=== PATIENT | male | born 1940 | race Caucasian/White ===

== ENCOUNTER 2020-07-12 08:13 | Outpatient (REF) | payer MEDICARE, OTHER, SELFPAY ==
[2020-07-12 11:03] LABS: MANUAL DIFF FLAG NO
[2020-07-12 11:06] LABS: Basophils Percent Auto 0.5 % (0-2); Eosinophils Absolute Auto 0.1 X10*3/uL (0.0-0.4); Eosinophils Percent Auto 0.9 % (0-4); Hematocrit 41.3 % (42-52); Hemoglobin 14.3 g/dl (14.0-18.0); Imm Gran Abs Auto 0.03 X10*3/uL (0.00-0.03); Imm Gran Pct Auto 0.4 % (0.0-0.4); Lymphocytes Absolute Auto 1.6 X10*3/uL (1.2-4.9); Lymphocytes Percent Auto 19.4 % (20-40); Mean Corpuscular HGB Conc 34.6 g/dl (31.0-36.0); Mean Corpuscular Hemoglobin 30.4 pg (27.0-33.0); Mean Corpuscular Volume 87.9 fL (80-98); Mean Platelet Volume 10.8 fL (9.4-12.4); Monocytes Absolute Auto 0.6 X10*3/uL (0.1-1.2); Monocytes Percent Auto 6.8 % (2-11); Neutrophils Absolute Auto 5.8 X10*3/uL (2.0-8.3); Platelet Count 223 X10*3/uL (160-400); Red Cell Distribution Width 12.8 % (11.0-16.0); White Blood Count 8.1 X10*3/uL (4.8-10.8)
[2020-07-12 11:28] LABS: Estimated Average Glucose 131 mg/dL; Hemoglobin A1c % 6.2 %
[2020-07-12 11:50] LABS: Alanine Aminotransferase 14 U/L (0-40); Albumin Level 4.5 g/dL (3.5-5.0); Alkaline Phosphatase 67 U/L (39-117); Anion Gap 15 (12-20); Aspartate Amino Transferase 15 U/L (5-37); Bilirubin Total 0.9 mg/dL (0.0-1.0); Blood Urea Nitrogen 16 mg/dL (9-16); Calcium 8.7 mg/dL (8.4-10.2); Carbon Dioxide 24 mmol/L (22-29); Chloride 106 mmol/L (96-108); Cholesterol 138 mg/dL; Estimated Glomerular Filt Rate > 60; Glucose Fasting 92 mg/dL (60-99); HDL Cholesterol 35 mg/dL; LDL Cholesterol Calculated 87 mg/dl; Potassium 4.6 mmol/L (3.3-5.1); Sodium 140 mmol/L (135-145); Total Protein 6.5 g/dL (6.5-8.0); Triglycerides 84 mg/dL
[2020-07-12 12:13] LABS: Creatinine Urine 114.87 mg/dL; Microalbum/Creatinine Ratio Ur 55.7 ug/mg cr
== END 2020-07-12 08:14 | disposition home or self-care (01) ==
LOC: HO.HMGCLDS 08:13
PROVIDERS: PCP Internal Medicine; Visit Provider Internal Medicine
DX: E11.9 Type 2 diabetes mellitus without complications (principal)
CPT/HCPCS: 36415; 80053; 80061; 82043; 83036; 85025

== ENCOUNTER 2020-07-26 08:14 | Outpatient (REF) | payer MEDICARE, OTHER, SELFPAY ==
--- NOTE | 2020-07-26 15:44 | MHC.AU.P13 ---
Adult Audiological Evaluation Date of Visit: 07/26/20 Reason for Appointment: Audiological evaluation due to concern for decreased hearing. Mr. Whitehead reports that he does not hear well in most situations and often doesn't understand what people are saying. He reports occasional ringing in his ears, but hasn't noticed it for a while. Does patient feel they have a hearing loss?: Yes If Yes, Which Ear?: Both Ears Has hearing been tested previously?: No Hearing Handicap Inventory: HHIE SCORE: 8 Based on HHIE score, patient has: No perceived hearing handicap Ear History: History of Ear Wax Buildup: Both Ears Bothersome Tinnitus/Ringing/Noises in Ears: Occasional ringing, likely transient ear noise History: History: Yes Branch: [employer] Years in : 4-8 Years Medical History: Medical History:Measles, Mumps Medical History (Other): Gall stones ~1986, back surgery 1999 Medication List: Aspirin 81mg, metformin 1000 mg, atorvastatin, lisinopril 20 mg, one a day multi vitamin, vitamin D, vitamin B12, vitamin C Otoscopy: Right Ear: Occluded w/wax. Partially removed w/lighted curette. Unable to complete Left Ear: Occluded w/wax. Partially removed w/lighted curette. Unable to complete Tympanometry: Tympanometry performed due to: To determine if cerumen blockage is fully occluding canal(s) Right Ear: Reduced Middle Ear Compliance (Type As) Left Ear: Could Not Obtain Seal Hearing Evaluation: Transducer(s) Used: Circumaural Headphones, Bone Conduction Method: Conventional Audiometry Stimuli Used: Pure Tones Right Ear: Description of Hearing: Normal hearing at 250 Hz, steeply sloping to a mild to severe sensorineural hearing loss from 500-8000 Hz. Left Ear: Description of Hearing: Normal hearing at 250 Hz, steeply sloping to a mild to moderately severe sensorineural hearing loss from 500-2000 Hz, severe mixed hearing loss from 5339-2174 Hz, and a profound hearing loss from 0032-6524 Hz. Speech Recognition Threshold (SRT): Method Used: Monitored Live Voice Stimuli Used: Spondee Words Right Ear: 30 dBHL Left Ear: 40 dBHL Word Discrimination: Method: Recorded Lists Word Lists Used: NU-6 Right Ear: 84% at 70 dBHL Left Ear: 48% at 80 dBHL Recommendations: Audiological re-evaluation in one year. Trial with amplification is recommended. Follow-up with physician for cerumen removal. Briefly discussed hearing aids today. Recommend that Mr. Whitehead contact his health insurance company to determine whether he has a hearing aid benefit. He may also consider contacting the [facility] in [place] to determine is eligible for hearing aids through them given that he is a . He was welcomed to return for a consultation should he decide to pursue hearing aids through our clinic. Recommend that Mr. Whitehead have the rest of the wax removed from his ears either with [id number] ear wax removal drops or by an ENT physician. Diagnosis: Primary Diagnosis: H90.3 Bilateral Sensorineural Hearing Loss Secondary Diagnosis: H61.23 Impacted Cerumen, Bilateral Services Performed: Services Performed: Comprehensive Audiological Evaluation (CPT 09316) Tympanometry (CPT 76656) Signature: Provider: Eveline Pina, CCC-A
== END 2020-07-26 08:15 | disposition home or self-care (01) ==
LOC: HO.SH 08:14
PROVIDERS: Visit Provider Internal Medicine
DX: H90.3 Sensorineural hearing loss, bilateral (principal); H61.23 Impacted cerumen, bilateral
CPT/HCPCS: 92557; 92567

== ENCOUNTER 2021-02-08 06:48 | Outpatient (REF) | payer MEDICARE, OTHER, SELFPAY ==
[2021-02-08 11:24] LABS: MANUAL DIFF FLAG NO
[2021-02-08 11:29] LABS: Basophils Percent Auto 0.3 % (0-2); Eosinophils Absolute Auto 0.2 X10*3/uL (0.0-0.4); Eosinophils Percent Auto 2.2 % (0-4); Hematocrit 40.3 % (42-52); Hemoglobin 13.8 g/dl (14.0-18.0); Imm Gran Abs Auto 0.03 X10*3/uL (0.00-0.03); Imm Gran Pct Auto 0.3 % (0.0-0.4); Lymphocytes Absolute Auto 2.1 X10*3/uL (1.2-4.9); Lymphocytes Percent Auto 22.9 % (20-40); Mean Corpuscular HGB Conc 34.2 g/dl (31.0-36.0); Mean Corpuscular Hemoglobin 30.2 pg (27.0-33.0); Mean Corpuscular Volume 88.2 fL (80-98); Mean Platelet Volume 10.5 fL (9.4-12.4); Monocytes Absolute Auto 0.7 X10*3/uL (0.1-1.2); Monocytes Percent Auto 7.7 % (2-11); Neutrophils Absolute Auto 6.2 X10*3/uL (2.0-8.3); Neutrophils Percent Auto 66.6 % (45-73); Platelet Count 221 X10*3/uL (160-400); Red Blood Count 4.57 X10*6/uL (4.60-5.80); Red Cell Distribution Width 12.6 % (11.0-16.0); White Blood Count 9.3 X10*3/uL (4.8-10.8)
[2021-02-08 11:48] LABS: Appearance Urine CLEAR; Color Urine YELLOW; Glucose Urine UA NEG (NEG); Leukocyte Esterase Urine NEG (NEG); Nitrite Urine NEG (NEG); PH 5.5 (5.0-8.0); Specific Gravity - Urine 1.025 (1.005-1.025); Urine Blood NEG (NEG); Urine Ketones NEG (NEG); Urine Protein NEG (NEG-TRACE)
[2021-02-08 11:56] LABS: Alanine Aminotransferase 14 U/L (0-40); Albumin Level 4.4 g/dL (3.5-5.0); Alkaline Phosphatase 74 U/L (39-117); Anion Gap 15 (12-20); Aspartate Amino Transferase 16 U/L (5-37); Bilirubin Total 0.9 mg/dL (0.0-1.0); Blood Urea Nitrogen 16 mg/dL (9-16); Calcium 9.1 mg/dL (8.4-10.2); Carbon Dioxide 24 mmol/L (22-29); Chloride 105 mmol/L (96-108); Cholesterol 124 mg/dL; Estimated Glomerular Filt Rate > 60; Glucose Fasting 71 mg/dL (60-99); HDL Cholesterol 35 mg/dL; LDL Cholesterol Calculated 66 mg/dl; Potassium 4.8 mmol/L (3.3-5.1); Sodium 139 mmol/L (135-145); Total Protein 6.4 g/dL (6.5-8.0); Triglycerides 118 mg/dL
[2021-02-08 12:05] LABS: Vitamin D 25-OH Total 28.6 ng/mL (>30)
[2021-02-08 12:16] LABS: RBC Urine 0 /HPF (0); Squamous Epithelial Cell Urine 2+ /LPF; WBC Urine 0 /HPF (0-4)
[2021-02-08 12:25] LABS: Vitamin B12 463 pg/mL (200-900)
[2021-02-08 13:00] LABS: Creatinine Urine 139.41 mg/dL; Microalbum/Creatinine Ratio Ur 7.1 ug/mg cr
[2021-02-09 07:23] LABS: Estimated Average Glucose 134 mg/dL; Hemoglobin A1c % 6.3 %
== END 2021-02-08 06:49 | disposition home or self-care (01) ==
LOC: HO.HMGCLDS 06:48
PROVIDERS: PCP Internal Medicine; Visit Provider Internal Medicine
DX: E11.49 Type 2 diabetes mellitus with other diabetic neurological complication (principal); E11.29 Type 2 diabetes mellitus with other diabetic kidney complication; Z79.4 Long term (current) use of insulin
CPT/HCPCS: 36415; 80053; 80061; 81001; 82043; 82306; 82607; 82746; 83036; 85025

== ENCOUNTER 2021-08-27 07:02 | Outpatient (REF) | payer MEDICARE, OTHER, SELFPAY ==
[2021-08-27 11:15] LABS: MANUAL DIFF FLAG NO
[2021-08-27 11:40] LABS: Basophils Absolute Auto 0.1 X10*3/uL (0.0-0.2); Basophils Percent Auto 0.5 % (0-2); Eosinophils Absolute Auto 0.3 X10*3/uL (0.0-0.4); Eosinophils Percent Auto 3.1 % (0-4); Hemoglobin 13.8 g/dl (14.0-18.0); Imm Gran Abs Auto 0.04 X10*3/uL (0.00-0.03); Imm Gran Pct Auto 0.4 % (0.0-0.4); Lymphocytes Absolute Auto 2.3 X10*3/uL (1.2-4.9); Lymphocytes Percent Auto 24.8 % (20-40); Mean Corpuscular HGB Conc 33.7 g/dl (31.0-36.0); Mean Corpuscular Hemoglobin 30.3 pg (27.0-33.0); Mean Corpuscular Volume 89.9 fL (80.0-98.0); Mean Platelet Volume 10.4 fL (9.4-12.4); Monocytes Absolute Auto 0.7 X10*3/uL (0.1-1.2); Monocytes Percent Auto 7.8 % (2-11); Neutrophils Absolute Auto 5.9 x10*3/uL (2.0-8.3); Neutrophils Percent Auto 63.4 % (45-73); Platelet Count 219 X10*3/uL (160-400); Red Blood Count 4.56 X10*6/uL (4.60-5.80); White Blood Count 9.3 X10*3/uL (4.8-10.8)
[2021-08-27 11:43] LABS: Estimated Average Glucose 120 mg/dL; Hemoglobin A1c % 5.8 %
[2021-08-27 12:06] LABS: Alanine Aminotransferase 10 U/L (0-40); Albumin Level 4.3 g/dL (3.5-5.0); Alkaline Phosphatase 79 U/L (39-117); Anion Gap 12 (12-20); Aspartate Amino Transferase 13 U/L (5-37); Bilirubin Total 0.7 mg/dL (0.0-1.0); Blood Urea Nitrogen 18 mg/dL (9-16); Calcium 9.4 mg/dL (8.4-10.2); Carbon Dioxide 26 mmol/L (22-29); Chloride 108 mmol/L (96-108); Cholesterol 120 mg/dL; Estimated Glomerular Filt Rate > 60; Glucose Fasting 64 mg/dL (60-99); HDL Cholesterol 34 mg/dL; LDL Cholesterol Calculated 70 mg/dl; Potassium 4.6 mmol/L (3.3-5.1); Sodium 141 mmol/L (135-145); Total Protein 6.6 g/dL (6.5-8.0); Triglycerides 83 mg/dL
[2021-08-27 12:06] LABS: Creatinine Urine 129.22 mg/dL; Microalbum/Creatinine Ratio Ur 38.6 ug/mg cr
[2021-08-27 12:07] LABS: Thyroid Stimulating Hormone 1.16 uIU/mL (0.32-4.0)
== END 2021-08-27 07:03 | disposition home or self-care (01) ==
LOC: HO.HMGCLDS 07:02
PROVIDERS: Visit Provider Internal Medicine
DX: E11.9 Type 2 diabetes mellitus without complications (principal); E66.09 Other obesity due to excess calories
CPT/HCPCS: 36415; 80053; 80061; 82043; 83036; 84443; 85025

== ENCOUNTER 2022-08-15 06:44 | Outpatient (REF) | payer MEDICARE, OTHER, SELFPAY ==
[2022-08-15 11:13] LABS: MANUAL DIFF FLAG NO
[2022-08-15 11:22] LABS: Basophils Percent Auto 0.5 % (0-2); Eosinophils Absolute Auto 0.2 X10*3/uL (0.0-0.4); Eosinophils Percent Auto 2.3 % (0-4); Hematocrit 37.8 % (42.0-52.0); Hemoglobin 12.7 g/dl (14.0-18.0); Imm Gran Abs Auto 0.03 X10*3/uL (0.00-0.03); Imm Gran Pct Auto 0.4 % (0.0-0.4); Lymphocytes Absolute Auto 2.2 X10*3/uL (1.2-4.9); Lymphocytes Percent Auto 26.6 % (20-40); Mean Corpuscular HGB Conc 33.6 g/dl (31.0-36.0); Mean Corpuscular Hemoglobin 30.1 pg (27.0-33.0); Mean Corpuscular Volume 89.6 fL (80.0-98.0); Mean Platelet Volume 10.9 fL (9.4-12.4); Monocytes Absolute Auto 0.6 X10*3/uL (0.1-1.2); Monocytes Percent Auto 7.6 % (2-11); Neutrophils Absolute Auto 5.2 x10*3/uL (2.0-8.3); Neutrophils Percent Auto 62.6 % (45-73); Platelet Count 204 X10*3/uL (160-400); Red Blood Count 4.22 X10*6/uL (4.60-5.80); Red Cell Distribution Width 12.9 % (11.0-16.0); White Blood Count 8.3 X10*3/uL (4.8-10.8)
[2022-08-15 11:35] LABS: Estimated Average Glucose 123 mg/dL; Hemoglobin A1c % 5.9 %
[2022-08-15 11:46] LABS: Alanine Aminotransferase 14 U/L (0-40); Albumin Level 4.1 g/dL (3.5-5.0); Alkaline Phosphatase 71 U/L (39-117); Anion Gap 11 (12-20); Aspartate Amino Transferase 15 U/L (5-37); Bilirubin Total 0.8 mg/dL (0.0-1.0); Blood Urea Nitrogen 17 mg/dL (9-16); Calcium 8.6 mg/dL (8.4-10.2); Carbon Dioxide 25 mmol/L (22-29); Chloride 108 mmol/L (96-108); Cholesterol 112 mg/dL; Estimated Glomerular Filt Rate > 60; Glucose Fasting 74 mg/dL (60-99); HDL Cholesterol 31 mg/dL; LDL Cholesterol Calculated 60 mg/dl; Potassium 4.4 mmol/L (3.3-5.1); Sodium 140 mmol/L (135-145); Total Protein 5.9 g/dL (6.5-8.0); Triglycerides 108 mg/dL
[2022-08-15 12:14] LABS: Creatinine Urine 144.65 mg/dL; Microalbum/Creatinine Ratio Ur 8.9 ug/mg cr
== END 2022-08-15 06:45 | disposition home or self-care (01) ==
LOC: HO.HMGCLDS 06:44
PROVIDERS: PCP Internal Medicine; Visit Provider Internal Medicine
DX: E11.9 Type 2 diabetes mellitus without complications (principal); I10 Essential (primary) hypertension; M54.31 Sciatica, right side
CPT/HCPCS: 36415; 80053; 80061; 82043; 83036; 85025

== ENCOUNTER 2023-06-15 09:55 | Outpatient (AMB) | payer MEDICARE, OTHER, SELFPAY ==
--- NOTE | 2023-06-15 10:57 | MHC.OFFWIV ---
Intake Vital Signs 06/15/23 11:01 Height 5 ft 9 in Weight 180 lb BMI 26.6 BP 150/80 H Blood Pressure Location Lt brachial Position Sitting Pulse 76 Pulse Source Pulse Oximeter Temp 98.0 F Temp Source Temporal Artery Scan Pulse Oximetry (%) 98 Oxygen Delivery Method Room Air Intake Visit Reasons: [employer] growth on his back, itchy Intake Note: pt is here for c.o growth on his back, pt states its itchy Patient Tobacco Use Status: Never used Tobacco Allergies No Known Allergies Allergy (Verified 06/15/23 10:58) Do you need a note to return to daycare/school/sports/work: No HPI [employer] growth on his back, itchy HPI Details 82-year-old male presents to the office for a sick visit. Patient has a lesion on the back that he would like examined. It started bleeding over the weekend. [facility] Social History (System 08/09/21 @ 13:58 by Susan Daley) Patient Tobacco Use Status: Never used Tobacco Physical Exam Vital Signs: Last Vital Signs Temp 98.0 F 06/15/23 11:01 Pulse 76 06/15/23 11:01 BP 150/80 H 06/15/23 11:01 Pulse Ox 98 06/15/23 11:01 Oxygen Delivery Method Room Air 06/15/23 11:01 BMI result Body Mass Index 26.6 Skin Other: Three centimetres cystic lesion filled with blood. No tenderness. The skin over the cyst is thickened. Assessment & Plan Assessment & Plan (1) Sebaceous cyst: Code(s): L72.3 - Sebaceous cyst Plan: Appointment with surgeon given for excision of the cyst. Coding Level of Care Code Est Pt Level 3 (95864) Diagnoses Sebaceous cyst L72.3
[2023-06-15 11:01] VITALS: BP 150/80; PULSE 76; TEMP 36.7; O2SAT 98; BMI 26.6
== END 2023-06-15 11:34 | disposition home or self-care (01) ==
PROVIDERS: PCP Internal Medicine; Visit Provider Internal Medicine
DX: L72.3 Sebaceous cyst (principal)
CPT/HCPCS: 99213

== ENCOUNTER 2023-06-30 10:07 | Outpatient (AMB) | payer MEDICARE, OTHER, SELFPAY ==
--- NOTE | 2023-06-30 10:09 | MHC.OFFVIS ---
Intake Vital Signs 06/30/23 10:15 Height 5 ft 9 in Weight 193 lb BMI 28.5 BP 156/67 H Blood Pressure Location Rt brachial Position Sitting Pulse 49 L Intake Visit Reasons: Cyst~ back Intake Note: Patient was referred by Dr. Degroot for cyst on back. Present for 8m. Patient c/o: bleeding, painful to the touch. Irritated with constant friction from shirts. Multiple Coil Winder Required: No Accompanied by: Spouse Allergies No Known Allergies Allergy (Verified 06/30/23 10:15) HPI HPI Comments History of Present Illness Details Patient presents for evaluation of a left mid back growth/mass. He has had this indeterminate time. His increasing in size, becoming more symptomatic. Patient presents with his . Chart was reviewed patient evaluated. Patient has never had such lesions before. [facility] Social History Patient Tobacco Use Status: Never used Tobacco Physical Exam Vital Signs: Last Vital Signs Pulse 49 L 06/30/23 10:15 BP 156/67 H 06/30/23 10:15 BMI result Body Mass Index 28.5 HEENT Other: No cervical, periclavicular, or axillary adenopathy. Chest Other: Chest breath sounds bilaterally, HS 1 in 2 GI Other: Abdomen soft, corpulent, benign Back/Spine/Pelvis Other: Patient has approximately 4 x 3 cm exophytic left mid back mass/growth. Assessment & Plan Assessment & Plan (1) Skin malignant neoplasm: Code(s): C44.90 - Unspecified malignant neoplasm of skin, unspecified Plan Because of the size and depth of this process, the current recommendation is to undergo wide local excision of this and Ambulatory Surgical setting. Risks, benefits, and alternatives reviewed the patient and his and included but not limited to bleeding, infection, recurrence, numbness, pain, scarring, seroma formation and the patient wishes to proceed. All questions answered. Arrangements were made for this. Coding Level of Care Code New Pt Level 5 (41305) Diagnoses Skin malignant neoplasm C44.90
[2023-06-30 10:15] VITALS: BP 156/67; PULSE 49; BMI 28.5
== END 2023-06-30 10:34 | disposition home or self-care (01) ==
PROVIDERS: PCP Internal Medicine; Referring Provider Internal Medicine; Visit Provider Surgery
DX: L72.3 Sebaceous cyst (principal)
CPT/HCPCS: 99204

== ENCOUNTER → 2023-06-30 10:07 | Outpatient (BNVA) | payer MEDICARE, OTHER, SELFPAY | PROVIDERS: PCP Internal Medicine; Referring Provider Internal Medicine; Visit Provider Surgery | DX: C44.90 Unspecified malignant neoplasm of skin, unspecified (principal) | CPT/HCPCS: 99202 ==

== ENCOUNTER 2023-07-10 11:43 | Day surgery (SDC) | payer MEDICARE, OTHER, SELFPAY ==
--- NOTE | 2023-07-09 10:24 | MHC.SHP ---
Pre-Procedural Eval Section A - 24 Hr Update-Section A only Date of Service: 07/09/23 The patient is an INPATIENT: No Changes since office visit: No Cold of Flu in the past 2 weeks, No New Medical Problems, No Changes in Medication and No Patient answered all questions The patient has been examined within 24 hours of the surgical procedure. The History & Physical has been completed within 30 days and I have reviewed it.: Yes Section B - Complete if H&P > 30 days Chief Complaint: Unspecified malignant neoplasm of skin, unspecifie Allergies: Allergies Allergy/AdvReac Type Severity Reaction Status Date / Time No Known Allergies Allergy Verified 06/30/23 10:15 Plan I have reviewed the history and physical and performed a pertinent physical examination on my patient. No changes have occurred unless specified. Time Spent With Patient Time: Total time managing care of this patient today ____ minutes.
--- NOTE | 2023-07-09 12:31 | HO.ANESPROP2 ---
HPI - Anesthesia Eval Consult details Narrative: 82yo M for Left Wide Local Excision Mid Back Skin Cancer PMFSH Active Problems Active Problems: All Active Problems (Updated 06/30/23 @ 11:09 by John Giang MD) Skin malignant neoplasm (Acute) Past Medical History Medical History (Updated 07/09/23 @ 10:14 by Elizabeth Dubose RN) HTN (hypertension) Diabetes High cholesterol Social History Social History Patient Tobacco Use Status: Never used Tobacco Meds Allergies Allergy/AdvReac Type Severity Reaction Status Date / Time No Known Allergies Allergy Verified 06/30/23 10:15 Home Medications Medication Instructions Recorded Confirmed Last Taken Type atorvastatin 20 mg tablet 20 mg PO DAILY 06/15/23 Unknown History insulin glargine 100 unit/mL (3 20 unit subcut DAILY 06/15/23 Unknown History mL) subcutaneous pen (Lantus Solostar U-100 Insulin) lisinopril 20 mg tablet 20 mg PO DAILY 06/15/23 Unknown History metformin 1,000 mg tablet 1,000 mg PO BID 06/15/23 Unknown History pen needle, diabetic 31 gauge x #1,200 ea 06/15/23 Unknown History 10/07 (BD Ultra-Fine Short Pen Needle) Assessment and Plan Assessment Anesthesia Assessment: Chart Reviewed
[2023-07-10 12:03] LABS: Glucose, Whole Blood 100 mg/dL (60-115)
--- NOTE | 2023-07-10 12:30 | P.CONAN_ITS ---
[facility], [facility] Active Problems Active Problems: All Active Problems (Updated 06/30/23 @ 11:09 by John Giang MD) Skin malignant neoplasm (Acute) Past Medical History Medical History HTN (hypertension) Diabetes High cholesterol Family History Family history of problems with anesthesia: No Surgical History History of Problems with Anesthesia: No Social History Social History Patient Tobacco Use Status: Never used Tobacco Advance Directives: No Advance Directives Information Provided: Yes Meds Allergies Allergy/AdvReac Type Severity Reaction Status Date / Time No Known Allergies Allergy Verified 06/30/23 10:15 Active Medications: Current Medications Fentanyl (Fentanyl Citrate/Pf 100 Mcg/2 Ml Vial) 25 mcg IVPUSH Q5M PRN; Protocol PRN Reason: Pain, Moderate(Pain Scale 4-6) Lactated Ringer's (Lr) 1,000 mls @ 100 mls/hr IVCONT .Q10H MILAN Ondansetron HCl (Ondansetron Hcl 4 Mg/2 Ml Vial) 4 mg IVPUSH ONCE PRN PRN Reason: Nausea and Vomiting Home Medications Medication Instructions Recorded Confirmed Last Taken Type atorvastatin 20 mg tablet 20 mg PO DAILY 06/15/23 07/10/23 Unknown History insulin glargine 100 unit/mL (3 20 unit subcut DAILY 06/15/23 07/10/23 Unknown History mL) subcutaneous pen (Lantus Solostar U-100 Insulin) lisinopril 20 mg tablet 20 mg PO DAILY 06/15/23 07/10/23 Unknown History metformin 1,000 mg tablet 1,000 mg PO BID 06/15/23 07/10/23 Unknown History pen needle, diabetic 31 gauge x #1,200 ea 06/15/23 Unknown History 10/07 (BD Ultra-Fine Short Pen Needle) Exam Pertinent Lab Results Pertinent Lab Results: Laboratory Tests 07/10/23 11:59 POC Glucose 100 Airway Mallampati Class: II TM Dist: >3cm Neck ROM: Full Denture: Upper Partial: Lower Loose/Missing/Broken Teeth: Yes (M) Heart: rrr Lungs: lear Assessment and Plan Final Anesthetic Review Family History of Problems with Anesthesia: No History of Problems with Anesthesia: No NPO: Yes ASA Class: II Final Preanesthetic Review: No Changes in Pt Med Stat, Meds/Allgs Chart Reviewed, Consent Obtained/Reviewed and Anes Risks/Benef Reviewed Patient Risk: Intermediate Procedure Risk: Low Anesthetic Plan Anesthetic Plan: MAC: Disposition: Standard PACU
[2023-07-10 12:36] VITALS: BMI 28.2
[2023-07-10] MEDS: Lactated Ringers 1,000 ML 100 ML IVCONT (12:43)
[2023-07-10 13:45] VITALS: BP 185/59; PULSE 30; RESP 16
--- NOTE | 2023-07-10 13:55 | PC.NURSE ---
Patient resting comfortably in bed in preop. Monitor beeping showing HR SB in the low 30's. HR sustained here briefly, and returned to mid 50's at patients baseline. BP taken, 185/58. During this entire time, patient alert and talking, denying chest pain or discomfort, states I feel wouzy and just tired . Dr. Euceda made aware and at bedside. Blood Sugar taken per MD order, results 85. Per Dr. Euceda, no new orders at this time.
[2023-07-10 13:56] LABS: Glucose, Whole Blood 85 mg/dL (60-115)
[2023-07-10 13:58] VITALS: BP 176/64; PULSE 38
--- NOTE | 2023-07-10 14:53 | P.OP_ITS ---
Operative Note Operative Note Date of Service: 07/10/23 Narrative: Preoperative diagnosis: [] Right mid back exophytic growth/mass Postop diagnosis: [] The same Procedure [] wide local excision left mid back mass Surgeon: [] Rahat Screen Printing Supervisor: [] Kaye Type of Anesthesia: [] Mac Indication for surgery: [] Final size and specimen approximately 7 x 4 cm to grossly clear margins which were tagged for pathology for permanent evaluation Findings: [] Patient brought to the operating room, placed on operative table supine position, after adequate level of MAC anesthesia was induced, patient was placed in the right lateral decubitus position. Mid back was prepped and drap ed in usual sterile fashion. Using a transverse bi- elliptical incision to grossly clear margins of the exophytic growth in question was carried down through skin, subcutaneous tissue, and undermined using Bovie. Specimen sent to pathology tagged as noted above. Wound was irrigated and secured hemostasis after skin flaps were developed with Bovie. Wound was closed in the following manner; interrupted inverted dermal 3-0 Vicryl sutures followed by Steri-Strips and sterile dressings were applied. Wound was infiltrated 0.5% Marcaine/1% lidocaine at the beginning and at the end of the case. Sponge, needle, and instrument counts reported correct. Patient tolerated the procedure well and emerged anesthesia stable condition. EBL minimal
[2023-07-10 14:54] VITALS: BP 151/57; PULSE 58; RESP 15; TEMP 37; O2SAT 98
[2023-07-10 15:09] VITALS: BP 165/62; PULSE 54; RESP 18; TEMP 36.4; O2SAT 98
== END 2023-07-10 15:39 | disposition home or self-care (01) ==
PROVIDERS: PCP Internal Medicine; Visit Provider Surgery
PROC: (CPT 11606; principal; 2023-07-10 14:40)
DX: C44.519 Basal cell carcinoma of skin of other part of trunk (principal); I10 Essential (primary) hypertension; E11.9 Type 2 diabetes mellitus without complications; E78.00 Pure hypercholesterolemia, unspecified; Z79.4 Long term (current) use of insulin; Z79.84 Long term (current) use of oral hypoglycemic drugs; Z79.899 Other long term (current) drug therapy; Z87.891 Personal history of nicotine dependence
CPT/HCPCS: 11606; 82947; 88305; 88309; J0665; J0690; J2704; J3010

== ENCOUNTER → 2023-07-10 11:43 | Outpatient (BNV) | payer MEDICARE, OTHER, SELFPAY | PROVIDERS: PCP Internal Medicine; Visit Provider Surgery | DX: C44.519 Basal cell carcinoma of skin of other part of trunk (principal) | CPT/HCPCS: 11606 ==

== ENCOUNTER 2023-07-20 09:14 | Outpatient (AMB) | payer MEDICARE, OTHER, SELFPAY ==
[2023-07-20 09:21] VITALS: BP 155/67; PULSE 47
--- NOTE | 2023-07-20 09:21 | MHC.OFFVIS ---
Intake Vital Signs 07/20/23 09:21 Weight 191 lb BP 155/67 H Blood Pressure Location Rt brachial Position Sitting Pulse 47 L Intake Visit Reasons: S/P excision mid back skin cancer Intake Note: Patient here s/p WLE exc Lt mid back. Reports incision healing well. Patient c/o: denies pain, oozing. Lubrication Servicer Required: No Accompanied by: Spouse Allergies No Known Allergies Allergy (Verified 07/20/23 09:22) HPI HPI Comments History of Present Illness Details Patient presents with for follow-up. He has no wound issues or complaints. Pathology was reviewed. Clear all margins [facility] Medical History HTN (hypertension) Diabetes High cholesterol Social History Comment: counts correct Patient Tobacco Use Status: Former Tobacco user Quit Date: years and years ago Physical Exam Vital Signs: Last Vital Signs Pulse 47 L 07/20/23 09:21 BP 155/67 H 07/20/23 09:21 Back/Spine/Pelvis Other: Wound clean dry and intact healing very well. Assessment & Plan Assessment & Plan (1) Skin malignant neoplasm: Code(s): C44.90 - Unspecified malignant neoplasm of skin, unspecified Plan Patient and spouse have been given local instructions, patient will see me as directed or p.r.n.. All questions answered. Coding Level of Care Code Global (03650) Diagnoses Skin malignant neoplasm C44.90
== END 2023-07-20 09:38 | disposition home or self-care (01) ==
PROVIDERS: PCP Internal Medicine; Visit Provider Surgery
DX: C44.90 Unspecified malignant neoplasm of skin, unspecified (principal)
CPT/HCPCS: 99024

== ENCOUNTER → 2023-07-20 09:14 | Outpatient (BNVA) | payer MEDICARE, OTHER, SELFPAY | PROVIDERS: PCP Internal Medicine; Visit Provider Surgery | DX: C44.90 Unspecified malignant neoplasm of skin, unspecified (principal) | CPT/HCPCS: 99212 ==

== ENCOUNTER 2023-10-03 09:31 | Outpatient (REF) | payer MEDICARE, OTHER, SELFPAY ==
[2023-10-03 11:08] LABS: MANUAL DIFF FLAG NO
[2023-10-03 11:14] LABS: Basophils Absolute Auto 0.1 X10*3/uL (0.0-0.2); Basophils Percent Auto 0.6 % (0-2); Eosinophils Absolute Auto 0.2 X10*3/uL (0.0-0.4); Eosinophils Percent Auto 2.1 % (0-4); Hematocrit 38.3 % (42.0-52.0); Hemoglobin 13.4 g/dl (14.0-18.0); Imm Gran Abs Auto 0.03 X10*3/uL (0.00-0.03); Imm Gran Pct Auto 0.4 % (0.0-0.4); Lymphocytes Percent Auto 24.8 % (20-40); Mean Corpuscular Hemoglobin 30.9 pg (27.0-33.0); Mean Corpuscular Volume 88.5 fL (80.0-98.0); Mean Platelet Volume 10.1 fL (9.4-12.4); Monocytes Absolute Auto 0.6 X10*3/uL (0.1-1.2); Monocytes Percent Auto 7.2 % (2-11); Neutrophils Absolute Auto 5.2 x10*3/uL (2.0-8.3); Neutrophils Percent Auto 64.9 % (45-73); Platelet Count 233 X10*3/uL (160-400); Red Blood Count 4.33 X10*6/uL (4.60-5.80); Red Cell Distribution Width 12.8 % (11.0-16.0)
[2023-10-03 11:16] LABS: Appearance Urine Clear; Color Urine Yellow; Glucose Urine UA Negative (Negative); Leukocyte Esterase Urine Negative (Negative); Nitrite Urine Negative (Negative); Urine Blood Negative (Negative); Urine Ketones Negative (Negative); Urine Protein Negative (Neg-Trace)
[2023-10-03 11:21] LABS: Bacteria Urine None Seen (None Seen); Hyaline Casts Urine 0-2 /LPF (0-2); RBC Urine 0-2 /HPF (0-2); Squamous Epithelial Cell Urine 0-2 /HPF (0-2); WBC Urine 0-5 /HPF (0-5)
[2023-10-03 11:23] LABS: Estimated Average Glucose 126 mg/dL
[2023-10-03 11:44] LABS: Alanine Aminotransferase 13 U/L (0-40); Albumin Level 4.2 g/dL (3.5-5.0); Alkaline Phosphatase 86 U/L (39-117); Anion Gap 15 (12-20); Aspartate Amino Transferase 13 U/L (5-37); Bilirubin Total 0.4 mg/dL (0.0-1.0); Blood Urea Nitrogen 22 mg/dL (9-16); Calcium 9.5 mg/dL (8.4-10.2); Carbon Dioxide 21 mmol/L (22-29); Chloride 107 mmol/L (96-108); Cholesterol 108 mg/dL (<200); Estimated Glomerular Filt Rate > 60; Glucose Fasting 99 mg/dL (60-99); HDL Cholesterol 27 mg/dL (>40); LDL Cholesterol Calculated 61 mg/dL (<100); Potassium 5.1 mmol/L (3.3-5.1); Sodium 138 mmol/L (135-145); Total Protein 6.7 g/dL (6.5-8.0); Triglycerides 103 mg/dL (<150)
[2023-10-03 11:55] LABS: Creatinine Urine 47.57 mg/dL; Microalbum/Creatinine Ratio Ur 14.7 ug/mg cr (<30)
[2023-10-03 12:00] LABS: Thyroid Stimulating Hormone 0.75 uIU/mL (0.32-4.0)
== END 2023-10-03 09:32 | disposition home or self-care (01) ==
LOC: HO.HMGCLDS 09:31
PROVIDERS: PCP Internal Medicine; Visit Provider Internal Medicine
DX: E11.9 Type 2 diabetes mellitus without complications (principal); I10 Essential (primary) hypertension
CPT/HCPCS: 36415; 80053; 80061; 81001; 82043; 82570; 83036; 84443; 85025

== ENCOUNTER 2024-11-08 08:56 | Outpatient (AMB) | payer MEDICARE, OTHER, SELFPAY ==
--- NOTE | 2024-11-08 09:20 | MHC.PC.OV ---
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 Required: No Accompanied by: Self / Same As Patient Allergies No Known Allergies Allergy (Verified 11/08/24 09:49) Medication List - Last Reconciled 11/08/24 by Emory Degroot MD atorvastatin 20 mg PO DAILY insulin glargine (Lantus Solostar U-100 Insulin) 20 units (0.2 mL) subcut DAILY lisinopril 20 mg PO DAILY metformin 1,000 mg PO BID pen needle, diabetic (BD Ultra-Fine Short Pen Needle) As directed Tobacco use date assessed: 11/08/24 Fall risk assessment: No Falls in past year Last assessed Fall Risk: 11/08/24 Dental Screening Dental Screen Date: 11/08/24 Did you have a dental visit in the last 12 months?: Yes Did you have a dental problem in the last 6 months where you did not have access to dental care?: No Was dental information given to patient?: Patient has dentist (pt has dentures) [facility] Medical History (Updated 11/08/24 @ 09:45 by Emory Degroot MD) HTN (hypertension) Diabetes High cholesterol Family History Father No problems noted. Mother No problems noted. Social History Housing: House Alcohol intake: current Alcohol intake frequency: does not drink Patient Tobacco Use Status: Former Tobacco user service: No Current occupational status: retired Cognitive needs: Yes (cane) Hearing needs: Yes (has hearing aids-does not use ) Vision needs: Yes (reading glasses) Questionnaire PHQ-9 Over the last 2 weeks, how often have you been bothered by any of the following problems? 1. Little interest or pleasure in doing things: not at all 2. Feeling down, depressed, or hopeless: not at all 3. Trouble falling or staying asleep, or sleeping too much: not at all 4. Feeling tired or having little energy: not at all 5. Poor appetite or overeating: not at all 6. Feeling bad about yourself - or that you are a failure or have let yourself or your family down: not at all 7. Trouble concentrating on things, such as reading the newspaper or watching television: not at all 8. Moving or speaking so slowly that other people could have noticed. Or the opposite - being so fidgety or restless that you have been moving around a lot more than usual: not at all 9. Thoughts that you would be better off or of hurting yourself in some way: not at all Total score: 0 Depression Screening Interpretation: Negative Depression Screening Done: Yes Source: Developed by Drs. Morgan Wan, Nhung Maria, Isaak Marks and colleagues, with an educational judith from [employer]. Thrive Questionnaire Date Thrive assessed: 11/08/24 I am a: Patient What is your living situation today?: I have a steady place to live Within the past 12 months, did the food you bought not last and you didn't have the money to get more?: Never true Within the past 12 months, did you worry whether your food would run out before you got money to buy more?: Never true Do you have trouble paying for medicines?: No Do you have trouble getting transportation to medical appointments?: No Do you have trouble paying your heating and electricity bill?: No Do you have trouble taking care of your child, family member or friend?: No Do you have trouble with day-to-day activities such as bathing, preparing meals, shopping, managing finances, etc.?: No Are you currently unemployed and looking for a job?: No Are you interested in more education?: No Please select the resources that you would like help with: None Currently or been in a relationship where the following occur: No concerns reported THRIVE Score: 0 AUDIT C Alcohol Use Questionnaire (AUDIT-C) 1. How often do you have a drink containing alcohol?: Never 3. How often do you have six or more drinks on one occasion?: Never Total Score: 0 KANWAL-7 AMB Questionnaire KANWAL-7 Date KANWAL - 7 assessed: 11/08/24 Feeling nervous, anxious, or on edge: 0 = Not at all Not being able to stop or control worryin = Not at all Worrying too much about different things: 0 = Not at all Trouble relaxin = Not at all Being so restless that it is hard to sit still: 0 = Not at all Becoming easily annoyed or irritable: 0 = Not at all Feeling afraid as if something awful might happen: 0 = Not at all Total KANWAL-7 score (0-4 normal; 5-9 mild; 10-14 moderate; 15-21 severe): 0 Source: Developed by Drs. Morgan Wan, Nhung Maria, Isaak Marks and colleagues, with an educational judith from [employer]. Physical exam (Primary Care) Vital Signs: Last Vital Signs Temp 97.5 F 11/08/24 09:29 Pulse 58 11/08/24 09:29 Resp 16 11/08/24 09:29 BP 141/65 H 11/08/24 09:29 Pulse Ox 96 11/08/24 09:29 Oxygen Delivery Method Room Air 11/08/24 09:29 Care Plan Goal for BP management: BP in range, continue current meds BMI result Body Mass Index 30.1 BMI Assessment/Plan discussion: High Tobacco/Smoking Status: Tobacco use Status Tobacco use date assessed 11/08/24 11/08/24 09:24 Patient Tobacco Use Status Former Tobacco user 11/08/24 09:24 PHQ-9: PHQ-9 Score PHQ-9: Total score 0 11/08/24 09:24 Depression Screening Interpretation: Negative Thrive Assessment: Date of Thrive Assessment Date Thrive assessed 11/08/24 11/08/24 09:24 Currently or been in a relationship where the following occur: No concerns reported Advance Care Planning discussion: Exists, not on file Date of discussion: 11/08/24 Who was present: Patient Forms completed: Health Care Proxy and MOLST Time spent: 1-15 minutes, not on file Actual minutes spent: 5 Coding Level of Care Code New Pt Level 4 (71594) Complex EM visit Add On G2211 Diagnoses HTN (hypertension) I10 High cholesterol E78.00 Diabetes E11.9 Additional Codes Vital Signs *Quality* - Advance Care Planning discussion: Exists, not on file ([id number]) Vital Signs *Quality* - Time spent: 1-15 minutes, not on file ([id number]) Assessment & Plan Assessment & Plan (1) HTN (hypertension): Code(s): I10 - Essential (primary) hypertension Category: Medical Plan: BP in range. Continue meds at same dosage. (2) High cholesterol: Code(s): E78.00 - Pure hypercholesterolemia, unspecified Category: Medical Plan: BW ordered. (3) Diabetes: Code(s): E11.9 - Type 2 diabetes mellitus without complications Category: Medical Plan: BW and A1c ordered. Will call with results Plan History of Present Illness - The patient is an 84-year-old male presenting for a routine follow-up visit. - Has Type 2 Diabetes Mellitus with recent stable control, managed with metformin. - Patient displays inconsistent medication adherence related to dietary intake. - Recently identified cataracts; awaiting cataract removal but facing scheduling issues. - The patient continues to manage Essential Hypertension with lisinopril, with no current issues related to blood pressure noted. - Denies recent visual disturbances, pain, or respiratory issues. 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 - No history of tobacco use currently, quit smoking a long time ago. - , conversation included interaction with spouse. - Currently independent in daily activities and mobility. Review of Systems - Eyes: Reports vision is stable despite cataracts. Denies visual disturbances such as halos. - Cardiovascular: Denies chest pain or palpitations. - Respiratory: Denies shortness of breath or cough. - Gastrointestinal: Denies nausea, vomiting, or abdominal pain. - Neurological: Denies headaches or dizziness. - Musculoskeletal: Denies musculoskeletal pain or discomfort. - General: Reports overall good health, denies any new complaints. Physical Exam General: Cooperative and healthy appearing Nutritional Appearance: Well nourished Orientation/consciousness: Patient oriented x3 Limitations: No limitations Head: Normal to inspection General: Appearance normal, both eyes and all related structures Neck: Normal visual inspection Chest: Normal palpation of entire chest wall Respiratory: N ormal respiratory effort Neurology: Patient oriented x3, no vision problems, no halos, sleeps well, no pain medication needed Results Plan 1. Type 2 Diabetes Mellitus - Maintain metformin regimen and emphasize adherence. - Fasting blood work ordered to assess control. 2. Essential Hypertension - Continue lisinopril, monitor blood pressure compliance. 3. Cataracts - Continue pursuits for cataract removal scheduling. Discussion Notes During the visit, I discussed the importance of medication adherence with Mr. Lester, particularly in relation to his management of Type 2 Diabetes Mellitus with metformin. I emphasized maintaining a consistent regimen regardless of dietary variations and planned routine blood work to further evaluate his diabetic control. Additionally, I confirmed his understanding and continuation of the current antihypertensive treatment with lisinopril for Essential Hypertension. We addressed his cataracts by discussing the referral for surgical evaluation, reassuring the importance of the procedure and advising persistence in scheduling his appointment. We plan to follow up in six months, or sooner if symptoms or complications arise. Patient Instructions - Take metformin regularly as prescribed, regardless of meal size or frequency. - Schedule fasting blood tests at your earliest convenience. - Continue lisinopril as previously advised. - Keep attempting to contact the training and documentation specialist for cataract surgery scheduling. - Return for follow-up in six months or earlier if any symptoms or concerns develop. Orders: Orders Basic Metabolic Panel Today E11.9 - Type 2 diabetes mellitus without complications, E78.00 - Pure hypercholesterolemia, unspecified, I10 - Essential (primary) hypertension Lipid Panel Today E11.9 - Type 2 diabetes mellitus without complications, E78.00 - Pure hypercholesterolemia, unspecified, I10 - Essential (primary) hypertension Hemoglobin A1c Today E11.9 - Type 2 diabetes mellitus without complications, E78.00 - Pure hypercholesterolemia, unspecified, I10 - Essential (primary) hypertension Thyroid Stimulating Hormone Today E11.9 - Type 2 diabetes mellitus without complications, E78.00 - Pure hypercholesterolemia, unspecified, I10 - Essential (primary) hypertension UA and rflx microscopic Today E11.9 - Type 2 diabetes mellitus without complications, E78.00 - Pure hypercholesterolemia, unspecified, I10 - Essential (primary) hypertension Complete Blood Count no Diff Today E11.9 - Type 2 diabetes mellitus without complications, E78.00 - Pure hypercholesterolemia, unspecified, I10 - Essential (primary) hypertension Liver Panel Today E11.9 - Type 2 diabetes mellitus without complications, E78.00 - Pure hypercholesterolemia, unspecified, I10 - Essential (primary) hypertension Microalbumin, Random (w Creat) Today E11.9 - Type 2 diabetes mellitus without complications, E78.00 - Pure hypercholesterolemia, unspecified, I10 - Essential (primary) hypertension
[2024-11-08 09:29] VITALS: BP 141/65; PULSE 58; RESP 16; TEMP 36.4; O2SAT 96; BMI 30.1
--- OUTSIDE RECORDS SUMMARY | 2024-11-08 09:31 | XMS_ITS | Clinical Summary ---
Author Organization [facility] it Address [address] [place] [address] Care Team Providers Care Melt Superintendant Name Role Phone Unavailable Primary Care Provider Unavailabl e Social History Tobacco Use Types Packs/Day Years Used Date Smoking Tobacco: Never Assessed Sex and Gender Information Value Date Recorded Sex Assigned at Not on file Legal Sex Male 5:06 PM EST Gender Identity Not on file Sexual Orientation Not on file Plan of Treatment Health Maintenance Due Date Last Done Comments DTaP,Tdap,and Td Vaccines (1 - Tdap) 1959 Pneumococcal Vaccine: 50+ Ye ars (1 of 1 - PCV) 1988 Zoster Vaccines (1 of 2) 1988 RSV Immunization Adult Patie nts (1 - 1-dose 75+ series) 2013 Cholesterol Screening (Lipid Panel) 04/23/2022 Depression Screening 04/23/2022 Falls Risk Assessment 04/23/2022 Social Influencers of Health Screening 04/23/2022 COVID-19 Vaccine (1 - 2023-2 5 season) 2024 Influenza Vaccine (Season Ended) 2025 HIB Vaccines Aged Out No longer eligi ble based on patient's age to complete this topic HPV Vaccines Aged Out No longer eligi ble based on patient's age to complete this topic Hepatitis A Vaccines Aged Out No long er eligible based on patient's age to complete this topic Hepatitis B Vaccines Aged Out No long er eligible based on patient's age to complete this topic IPV Vaccines Aged Out No longer eligi ble based on patient's age to complete this topic MMR Vaccines Aged Out No longer eligi ble based on patient's age to complete this topic Meningococcal ACWY Vaccine Aged Out N o longer eligible based on patient's age to complete this topic Meningococcal B Vaccine Aged Out No l onger eligible based on patient's age to complete this topic RSV Immunization Patients Un cristina 20 months Aged Out No longer eligible b ased on patient's age to complete this topic Varicella Vaccines Aged Out No longer eligible based on patient's age to complete this topic
== END 2024-11-08 09:43 | disposition home or self-care (01) ==
LOC: HO.HMCSH 08:56
PROVIDERS: PCP Internal Medicine; Visit Provider Internal Medicine
DX: I10 Essential (primary) hypertension (principal); E78.00 Pure hypercholesterolemia, unspecified; E11.9 Type 2 diabetes mellitus without complications; Z00.00 Encounter for general adult medical examination without abnormal findings

== ENCOUNTER → 2024-11-08 08:56 | Outpatient (BNVA) | payer MEDICARE, OTHER, SELFPAY | PROVIDERS: PCP Internal Medicine; Visit Provider Internal Medicine | DX: I10 Essential (primary) hypertension (principal); E78.00 Pure hypercholesterolemia, unspecified; E11.9 Type 2 diabetes mellitus without complications | CPT/HCPCS: 99202 ==